=== PATIENT | male | born 1930 | race Caucasian/White ===

== ENCOUNTER 2016-09-05 11:27 | Inpatient (IN) | payer MEDICARE, BC, OTHER ==
--- NOTE | ~2016-09-05 | CN ---
Consultation Report [facility] [address] [place]. [address] NAME: GITA MELLO : 29 STATUS : ADM IN [facility]#: [id number] AGE: 86 ADM/REG DATE : 09/05/16 MR#: [id number] REPORT SERV DATE: 09/07/16 DICTATED BY: JERMAIN CONWAY DATE: 09/07/16 REPORT STATUS : Draft TRANSCRIBED BY: MODJerome DATE: 09/07/16 DATE OF CONSULTATION: 09/07/2016 REASON FOR CONSULTATION: Perioperative anticoagulation management. PRIMARY REFRIGERATION ENGINEER: Dr. Gibbons, [facility]. HISTORY OF PRESENT ILLNESS: Mr. Mello is an 86-year-old gentleman who presents with BPH/urinary clot retention, who is now status post evacuation, awaiting a suprapubic tube placement on Friday. I have been called, given questions of Coumadin management in this setting. He has no cardiovascular complaints at this time. PAST MEDICAL HISTORY: (provided by verbal discussion with [facility] geoscience professor on- call). 1. CAD status post five-vessel CABG, 2004. 2. Status post mitral valve repair, 2004. 3. Status post Bi-V ICD, 2012. 4. Severe ischemic cardiomyopathy (LVEF 20%). 5. Atrial fibrillation, on Coumadin. ALLERGIES: NONE. SOCIAL HISTORY: Lives with family. Denies drinking alcohol, smoking, doing drugs. FAMILY HISTORY: Noncontributory. REVIEW OF SYSTEMS: As above, all other systems otherwise negative. PHYSICAL EXAMINATION: VITAL SIGNS: Blood pressure 108/53, pulse 67, temperature 98.5. GENERAL: Well developed, well nourished, no acute distress. NEURO: Awake, alert and oriented x3; no focal deficits, appropriate mood. HEENT: Moist mucous membranes, anicteric sclerae, no nasal discharge. NECK: No JVD, no carotid bruit. LUNGS: Clear to auscultation bilaterally, no wheezes, rales or rhonchi. CV: Regular rhythm, normal S1/S2, no murmurs, rubs or gallops. ABDOMEN: Soft, non-tender, non-distended, no rebound or guarding. EXTREMITIES: No pitting edema, normal distal pulses. SKIN: Warm, dry and intact; no rash. PERTINENT TEST FINDINGS: Potassium 3.8. Creatinine 1.29. White blood cell count 7.7 and hemoglobin 11.8. EKG is not available on the chart (may not have been checked). Consultation Report [place] [id number] [place]. [address] NAME: GITA MELLO : 29 STATUS : ADM IN PAT#: [id number] AGE: 86 ADM/REG DATE : 09/05/16 MR#: [id number] REPORT SERV DATE: 09/07/16 DICTATED BY: JERMAIN CONWAY DATE: 09/07/16 REPORT STATUS : Draft TRANSCRIBED BY: NAZIA DATE: 09/07/16 IMPRESSION AND PLAN: Mr. Mello is an 86-year-old man with above-mentioned cardiovascular history, awaiting suprapubic tube placement on Friday. It will be fine to hold his Coumadin, as you are already doing, for this procedure. Coumadin should be resumed postoperatively when okay with Urology. The indication for his Coumadin is atrial fibrillation and the day today risk of stroke is minimal in this setting. Otherwise, his cardiovascular issues are entirely stable from a CAD, and heart failure standpoint. He is warm and compensated without any angina or anginal equivalent. His vital signs are all optimized. Please call me with any further questions. ERIKA/NAZIA Jermain Conway MD / [id number] CC: Carol Harden III, M.D.
--- NOTE | ~2016-09-05 | CN ---
Consultation Report [facility] [address] [place]. [address] NAME: GITA PEDRO : 29 STATUS : DIS IN PAT#: [id number] AGE: 86 ADM/REG DATE : 09/05/16 MR#: [id number] REPORT SERV DATE: 09/13/16 DICTATED BY: MARIELENA BRIGHT DATE: 09/12/16 REPORT STATUS : Draft TRANSCRIBED BY: MODJerome DATE: 09/12/16 MEDICAL CONSULTATION NOTE DATE OF CONSULTATION: 09/12/2016 REASON FOR CONSULTATION: Clearance for discharge regarding diabetes. HISTORY OF PRESENT ILLNESS: This is an 86-year-old white male, who has adult-onset diabetes mellitus. Dr. Flaco Zafar has been following his diabetes for several years. He is a previous patient of Dr. Criselda Delgadillo. He is on multiple antidiabetic agents at home and has been only on sliding scale here. His blood sugars generally run from the 170 to 180 range in the morning up to a high of 250 to 313 at bedtime. He has undergone a suprapubic catheter placement and Rain catheter placement for urinary retention and has been following with Dr. Ding since admission. He was seen by the [facility], who allowed the patient to come off the Coumadin he had been on for atrial fibrillation previously. 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 Gibbons. MEDICATIONS: His home medications were reviewed. His antidiabetic medications included Levemir which he had been taking 25 units twice a day and Glimepiride 4 mg a day. He has been off his Janumet for about a year he says, and he takes sliding scale NovoLog. SOCIAL HISTORY: He is . Lives at home with his . He is retired from the [employer] after 21 years and had one tour of duty in [place]. He retired in 1971. 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 He lives in [place] [facility] [place], and has attended [employer] [facility] in the past. No cigarettes. No alcohol. He lives off [facility] and now near [facility]. FAMILY HISTORY: High blood pressure, diabetes, and heart disease all run in the family. REVIEW OF SYSTEMS: He has had no chest pain or shortness of breath. No fever, chills, night sweats, melena, or hematemesis. The remainder of the review of systems is negative. PHYSICAL EXAMINATION: GENERAL: This is a well-developed white male in no acute distress. HEENT: EOMI. Sclerae clear. Conjunctivae pink. He has a slight ptosis on the left side and a slight dysconjugate gaze. Consultation Report [place] [id number] [place]. [id number] NAME: GITA PEDRO : 29 STATUS : DIS IN PAT#: [id number] AGE: 86 ADM/REG DATE : 09/05/16 MR#: [id number] REPORT SERV DATE: 09/13/16 DICTATED BY: MARIELENA BRIGHT DATE: 09/12/16 REPORT STATUS : Draft TRANSCRIBED BY: NAZIA DATE: 09/12/16 NECK: No bruit and without any JVD. CHEST: Clear to A and P. HEART: Regular S1 and S2 without murmur, gallop, or click. ABDOMEN: Soft and nontender. Bowel sounds positive. EXTREMITIES: No edema. He has SCD hose on his legs. : He has a low suprapubic catheter and a Rain catheter in place. He has some slight blood tinging to the urine. LYMPHATICS: There is no adenopathy palpable. NEUROLOGIC: His developer relations manager is equal and symmetric bilaterally. Coordination intact. There are no tremors. He is symmetric and equal neurologically bilaterally. LABORATORY DATA: The blood sugars were reviewed over the last three days. His creatinine was 1.12, BUN of 28, and sodium of 140 within 3 days of admission after the Rain catheter was placed with the creatinine dropping from 1.48 down to 1.12. His hemoglobin is 10.7, hematocrit of 31.2, white count of 6.4, and platelets of 145,000. ASSESSMENT: 1. Diabetes type 2, uncontrolled. Dr. Zafar has been allowing permissive hyperglycemia with the patient on Levemir and sliding scale NovoLog recently. His blood sugars have been running at around 250 at home. He is equal to about that range of control here in the hospital, and I believe that discharge home would be adequate. He has been off the Janumet for about one year. With his prolonged fasting state at the hospital, perhaps restarting 20 units of Levemir twice a day at home would be a reasonable start since he has his NovoLog to use in a sliding scale fashion and knows how to use this to help keep the blood sugar below 250. He should follow back up with Dr. Flcao Zafar in the next 7 to 10 days with checks of his One Touches to allow for further adjustment or addition of medication if necessary. 2. Coagulopathy. [facility] has recommended starting back on the Coumadin just after surgery. Dr. Ding desired to see the patient prior to restarting the Coumadin, and he will follow up with Dr. Ding in 1 week. 3. ASCVD with valve repair, followed by Dr. Gibbons. He will continue his followup with him and discussed the indications for the Coumadin therapy further. 4. History of benign prostatic hypertrophy, Rain and suprapubic catheter are in place at this time. I believe the patient should be able to be discharged home. These instructions are given to him to try to effect a stable postoperative performance and avoidance for any need for rehospitalization. Dr. Ding has already recommended to take the following medications as well at home: Atorvastatin, carvedilol, and furosemide. He may be holding his Levemir and using just a sliding scale. However, I believe that he should adequately restart that Levemir at 20 twice a day. Continue the lisinopril at 2.5 daily, hold the Janumet, continue the Carafate and timolol, hold on the Coumadin until he sees Dr. Ding. Consultation Report [place] [id number] [facility] [place]. [address] NAME: GITA PEDRO : 29 STATUS : DIS IN PAT#: [id number] AGE: 86 ADM/REG DATE : 09/05/16 MR#: [id number] REPORT SERV DATE: 09/13/16 DICTATED BY: MARIELENA BRIGHT DATE: 09/12/16 REPORT STATUS : Draft TRANSCRIBED BY: NAZIA DATE: 09/12/16 DB/NAZIA Marielena Bright M.D. / [id number] CC: Carol Harden III, M.D. Walter Lee Few, M.D.
--- NOTE | ~2016-09-05 | DS ---
Discharge Summary [facility] [address] [place]. [address] NAME: GITA PEDRO : 29 STATUS : DIS IN PAT#: [id number] AGE: 86 ADM/REG DATE : 09/05/16 MR#: [id number] REPORT SERV DATE: 09/20/16 DICTATED BY: DONALD DING III DATE: 09/19/16 REPORT STATUS : Draft TRANSCRIBED BY: NAZIA DATE: 09/19/16 Data Collection from hospitalization DISCHARGE DIAGNOSES: 1. Benign prostatic hypertrophy, retention, and urinary clot retention. 2. Diabetes. 3. Hypertension. 4. Blindness. 5. History of atrial fibrillation. 6. History of severe ischemic cardiomyopathy, left ventricular ejection fraction 20%. CONSULTATIONS: Dr. Jermain Harding and Dr. Ben Carrillo. PROCEDURES: 1. Cystoscopy and clot evacuation on 09/05/2016. 2. Suprapubic tube catheter placement on 09/09/2012. PATHOLOGY: ( ) DISCHARGE MEDICATIONS: Aspirin 81 mg every morning, Lipitor 80 mg at bedtime, Lumigan one drop at bedtime, Coreg 10 mg every morning, Benadryl 25 mg two capsules at bedtime, Nexium 40 mg twice a day, NovoLog as instructed, Levemir 25 units subcutaneously twice a day, levothyroxine 50 mcg daily, Centrum one tablet daily, Klor-Con 20 mEq as instructed, Demadex 40 mg twice a day, Coumadin 6 as instructed. CONDITION AT DISCHARGE: Stable. DISPOSITION: The patient was discharged home to be followed by home health care on a low- cholesterol, 1800-calorie diabetic diet with no chocolate and no concentrated carbohydrates with activities as instructed. He would follow up with me on 09/17/2016, and would follow up with Dr. Flaco Zafar on 09/19/2016. HOSPITAL COURSE: This is an 86-year-old man who is in chronic retention. He had developed hematuria and clot retention. He had had several voiding trials and was unable to void. A CT scan in December of last year showed bilateral hydronephrosis, which resolved with Rain catheter placement. He has a large prostate and has a number of cardiovascular issues and did not get a cardiac clearance for surgery. Home health called on the day of this admission saying that his catheter had not drained, and there was blood in the catheter bag. This apparently had been going on for most of the night. He was on warfarin, and his INR level was 2.7. He came to the office and I attempted to irrigate his bladder with a sizeable catheter and simply could not evacuate any clot or irrigate it. It was felt that he would need to undergo surgical intervention. He was admitted to the hospital at this time for further evaluation and treatment. Upon admission, he was taken to the operating room where he underwent the above-mentioned procedure. He tolerated this well, and there were no complications. On postop day 1, his urine was clear. Continuous bladder irrigation was going to be weaned on the . He was seen in consultation by Dr. Jermain Harding regarding perioperative anticoagulation management. Discharge Summary [address] [address] NAME: GITA PEDRO : 29 STATUS : DIS IN PAT#: [id number] AGE: 86 ADM/REG DATE : 09/05/16 MR#: [id number] REPORT SERV DATE: 09/20/16 DICTATED BY: DONALD DING III DATE: 09/19/16 REPORT STATUS : Draft TRANSCRIBED BY: NAZIA DATE: 09/19/16 The patient has no cardiovascular complaints at this time. Creatinine level was 1.29, potassium was 3.8. Plans were being made for a suprapubic tube to be placed. It was felt to be fine to hold his Coumadin for this procedure. Coumadin would be resumed postoperatively when okay with Urology. The indication for his Coumadin is atrial fibrillation On 09/08/2016, INR level was 1.3. His lungs were clear. His urine remained clear. On 09/09/2016, he underwent suprapubic tube placement. He tolerated this well. There were no complications. The Rain catheter had been removed. H and H had decreased. On 09/10/2016, his urine was clear. His abdomen was soft with positive bowel sounds. Hemoglobin was stable. He was seen by Dr. Ben Carrillo regarding clearance for discharge regarding diabetes. The patient is on a number up antidiabetic agents at home. Here, he had only been on sliding scale insulin. Creatinine had decreased to 1.12. His type [address] Zafar had been allowing permissive hyperglycemia with the patient on Levemir and sliding scale NovoLog recently. His blood sugars had been running around 250 at home. He was equal to about that range of control here in the hospital. It was felt that discharge home would be adequate. He had been off Janumet for about one year. It was felt that with his prolonged fasting state at the hospital that perhaps restarting 20 units of Levemir twice a day at home would be reasonable since he has his NovoLog to use a sliding scale fashion. He knows how to help keep his blood sugar below 250 by using that. He would follow up with Dr. Flaco Zafar within 7 to 10 days with checks of his OneTouch's to allow for further adjustment or addition of medication as necessary. He does have a history of benign prostatic hypertrophy. Rain and suprapubic catheter were in place at this time. He would hold off on Coumadin until he saw Dr. Ding in followup. Discharge planning was performed. He continued to do well. On 09/12/2016, his vital signs were stable. His urine was faint pink. He had no clots. His abdomen was nontender. It was soft and non distended. Discharge instructions were given. Due to his improved and stable condition, he was discharged home with the above-stated instructions. Information collected by: Enma Maxwell I submit the above information as my discharge summary. TG/MODL Donald Ding III, M.D. / [id number] CC: Carol Harden III, M.D. Vimal Ramjee, MD
--- NOTE | ~2016-09-05 | OP ---
Record Of Operation [facility] [address] [place]. [address] NAME: GITA PEDRO : 29 STATUS : ADM IN PAT#: [id number] AGE: 86 ADM/REG DATE : 09/05/16 MR#: [id number] REPORT SERV DATE: 09/06/16 DICTATED BY: DONALD OTTO III DATE: 09/05/16 REPORT STATUS : Draft TRANSCRIBED BY: MODL DATE: 09/05/16 DATE OF PROCEDURE: 09/05/2016 PROCEDURE: Cystoscopy, clot evacuation. PREOPERATIVE DIAGNOSIS: Benign prostatic hypertrophy retention and urinary clot retention. POSTOPERATIVE DIAGNOSIS: Benign prostatic hypertrophy retention and urinary clot retention. ANESTHESIA: General. SURGEON: Donald Otto M.D. DESCRIPTION OF PROCEDURE: Following induction of adequate anesthesia, the patient was placed in dorsal lithotomy position, prepped and draped in a sterile fashion. Urethra was examined and noted to be normal. The prostate was entered. It was quite long, some 6 to 7 cm in length. There was a moderate median lobe which was not pedunculated. The urine in the bladder was grossly bloody. With the Ellik, I evacuated all clots until it came out light pink. Cystoscopy at that point showed a very distensible bladder with cellules and some diverticula. No tumors were noted. There was bleeding at the bladder neck basically from the prostate and median lobe. The bladder was inspected with both 70 and 30-degree lenses. No masses were noted. A 24 three-way was inserted, held on gentle traction. It irrigated to a light pink. The patient tolerated the procedure well. The efflux rapid drip was light pink. The EBL was difficult to estimate. The catheter was secured to the patient's right thigh and the procedure terminated. OB/MODL Donald Otto III, M.D. / [id number] CC: Donald Otto III, M.D.
--- NOTE | ~2016-09-05 | HP ---
History And Physical [place] [id number] [facility] [place]. [address] NAME: GITA PEDRO : 29 STATUS : ADM IN [facility]#: [id number] AGE: 86 ADM/REG DATE : 09/05/16 MR#: [id number] REPORT SERV DATE: 09/05/16 DICTATED BY: DONALD OTTO III DATE: 09/05/16 REPORT STATUS : Draft TRANSCRIBED BY: MODL DATE: 09/05/16 DATE OF ADMISSION: 09/05/2016 REASON FOR ADMISSION: Hematuria and clot retention. The patient is an 86-year-old white male who is in chronic retention and this developed at [facility]. He has had several voiding trials, was unable to void. A CT scan in December of last year showed bilateral hydronephrosis which resolved with Rain placement. He has a large prostate and has a number of cardiovascular issues and did not get a cardiac clearance for surgery. The home health called today saying his catheter had not drained and there was blood in the catheter in the bag. This apparently had been going on most of the night. He is on warfarin and his INR was 2.7. He came to the office and I attempted to irrigate his bladder with a sizeable catheter and simply could not evacuate any clots or irrigate it. He was admitted for a cysto clot evacuation. PAST MEDICAL HISTORY: Includes hypertension, diabetes, insulin-dependent, blindness, shortness of breath. He has a pacemaker and a defibrillator and had a valve repair in 2004. His surgery includes hydrocelectomy, appendectomy, colonoscopy, and right knee surgeries. FAMILY HISTORY: Not significant. SOCIAL HISTORY: He is . He has 2 children. He does not smoke or drink. REVIEW OF SYSTEMS: A 10-point review of systems was done with the patient and there was no chest pain, shortness of breath, weight loss, GI complaints, or neurologic complaints, etc. PHYSICAL EXAMINATION: VITAL SIGNS: On exam in the office, his blood pressure is 119/55, pulse is 70, and respirations were 13. NECK: Supple. LUNGS: Clear. HEART: Regular rate and rhythm without murmur or gallop. ABDOMEN: Soft. : Suprapubic area was somewhat firm but the bladder was not definitely palpated. Liver and spleen were not enlarged. Femoral pulses were intact. Rain catheter was in place. The prostate was 3+ smooth without nodularity or induration. IMPRESSION: Impression is that of a clot retention. We will do a cystoscopy. We will give him several units of fresh frozen plasma hopefully to bring down to around 1.5 to 2 on his INR so that we will not create more bleeding during the procedure. He would do a cystoscopy clot evacuation. I have explained to him the risk of infection and worsening of the bleeding, necessitating another clot retention requiring evacuation. He understands and is agreeable to the procedure. History And Physical [address] [address] NAME: GITA PEDRO : 29 STATUS : ADM IN [facility]#: [id number] AGE: 86 ADM/REG DATE : 09/05/16 MR#: [id number] REPORT SERV DATE: 09/05/16 DICTATED BY: DONALD OTTO III DATE: 09/05/16 REPORT STATUS : Draft TRANSCRIBED BY: NAZIA DATE: 09/05/16 OB/MODL Donald Otto III, M.D. / [id number] CC: Donald Otto III, M.D.
[~2016-09-05 11:27] MED LIST: AMARYL4 PO; ASAB PO; C25 PO; C5 PO; CARASPUDL PO; COREGCR10 PO; COUMADIN7.5 MG PO; JANUMET1 TAB PO; L20 PO; LEVEMIR SC; LIPITOR80 MG PO; MOBIC15 MG PO; NOVOLOG SC; PRILO PO; PRIN2.5 PO; TESS PO; TIMOLOL MAL0.5 % OP; TIMOPTIC0.25 % OP; XALAT OPH
[2016-09-05] MEDS ORDERED: COUMADIN6 MG PO (12:23)
[2016-09-05] MEDS ORDERED: NEXIUM40 PO (12:24)
[2016-09-05] MEDS ORDERED: LUMIGAN2.5 ML OPH (12:24)
[2016-09-05] MEDS ORDERED: BEN25 PO (12:25)
[2016-09-05] MEDS ORDERED: CENTRUM PO (12:25)
[2016-09-05] MEDS ORDERED: LEVOTHYROXIN50 MCG PO (12:25)
[2016-09-05] MEDS ORDERED: DEMA20 PO (12:26)
[2016-09-05] MEDS ORDERED: KLOR-CON M2020 MEQ PO (12:26)
[2016-09-05 13:07] LABS: BASOPHILS 0.1 %; BASOPHILS ABSOLUTE 0.01 10/3/uL (0.0-0.16); EOSINOPHILS 1.3 %; EOSINOPHILS ABSOLUTE 0.15 10/3/uL (0.0-0.53); HEMATOCRIT 38.4 % (40.0-51.0); HEMOGLOBIN 13.1 g/dL (13.6-17.8); IMMATURE GRANULOCYTES 0.3 %; IMMATURE GRANULOCYTES ABSOLUTE 0.03 10/3/uL (0.0-0.11); LYMPHOCYTES 12.9 %; LYMPHOCYTES ABSOLUTE 1.49 10/3/uL (0.67-4.30); MANUAL DIFF NO %; MEAN CORPUS HGB CONC 34.1 g/dL (32.0-36.0); MEAN CORPUSCULAR VOLUME 93.9 fL (80-100); MEAN PLATELET VOLUME 12.5 fL (9.2-13.0); MONOCYTES 7.2 %; MONOCYTES ABSOLUTE 0.83 10/3/uL (0.21-1.20); NEUTROPHILS 78.2 %; NEUTROPHILS ABSOLUTE 9.05 10/3/uL (2.02-8.40); PLATELET COUNT 154 10/3/uL (150-400); RBC DISTRIBUTION WIDTH 15.7 % (12.0-16.0); RED CELL COUNT 4.09 10/6/uL (4.7-6.1); WHITE BLOOD CELLS 11.6 10/3/uL (4.5-10.5)
[2016-09-05 13:15] LABS: INTERNATIONAL NORMAL RATI 2.6 UNITS (-); PARTIAL THROMBO TIME 37.1 SEC (22.5-37.2)
[2016-09-05 13:16] LABS: PROTIME (NOT ORD) 27.2 SEC (12.0-14.5)
[2016-09-05 13:19] LABS: BUN (BLOOD UREA NITROGEN) 31 MG/DL (6-23); CALCIUM, SERUM 8.5 MG/DL (8.5-10.4); CHLORIDE, SERUM 101 MMOL/L (96-112); CO2 (CARBON DIOXIDE) 33 MMOL/L (24-34); CREATININE 1.48 MG/DL (0.70-1.30); GFR AFRICAN AMERICAN 49 ML/MIN (>=60); GFR NON AFRICAN AMERICAN 42 ML/MIN (>=60); GLUCOSE, SERUM 78 MG/DL (60-99); POTASSIUM, SERUM 3.3 MMOL/L (3.5-5.3); SODIUM, SERUM 141 MMOL/L (135-148)
[2016-09-05 14:25] LABS: PFA (COL/ADP) 84 SEC (51-105); PFA (COL/EPI) > 300 SEC (72-180)
[2016-09-06 07:58] LABS: BASOPHILS 0.1 %; BASOPHILS ABSOLUTE 0.01 10/3/uL (0.0-0.16); EOSINOPHILS 0.3 %; EOSINOPHILS ABSOLUTE 0.02 10/3/uL (0.0-0.53); HEMOGLOBIN 11.8 g/dL (13.6-17.8); IMMATURE GRANULOCYTES 0.1 %; IMMATURE GRANULOCYTES ABSOLUTE 0.01 10/3/uL (0.0-0.11); LYMPHOCYTES 17.1 %; LYMPHOCYTES ABSOLUTE 1.32 10/3/uL (0.67-4.30); MEAN CORPUS HGB CONC 33.7 g/dL (32.0-36.0); MEAN CORPUSCULAR HEMOGLOB 31.6 pg (26.0-34.0); MEAN CORPUSCULAR VOLUME 93.8 fL (80-100); MEAN PLATELET VOLUME 12.9 fL (9.2-13.0); MONOCYTES 9.2 %; MONOCYTES ABSOLUTE 0.71 10/3/uL (0.21-1.20); NEUTROPHILS 73.2 %; NEUTROPHILS ABSOLUTE 5.65 10/3/uL (2.02-8.40); PLATELET COUNT 151 10/3/uL (150-400); RBC DISTRIBUTION WIDTH 15.9 % (12.0-16.0); RED CELL COUNT 3.73 10/6/uL (4.7-6.1); WHITE BLOOD CELLS 7.7 10/3/uL (4.5-10.5)
[2016-09-06 08:00] LABS: MANUAL DIFF NO %
[2016-09-06 08:02] LABS: INTERNATIONAL NORMAL RATI 1.8 UNITS (-)
[2016-09-06 08:05] LABS: PROTIME (NOT ORD) 20.5 SEC (12.0-14.5)
[2016-09-06 08:07] LABS: BUN (BLOOD UREA NITROGEN) 28 MG/DL (6-23); CALCIUM, SERUM 8.3 MG/DL (8.5-10.4); CHLORIDE, SERUM 97 MMOL/L (96-112); CO2 (CARBON DIOXIDE) 29 MMOL/L (24-34); CREATININE 1.29 MG/DL (0.70-1.30); GFR AFRICAN AMERICAN 57 ML/MIN (>=60); GFR NON AFRICAN AMERICAN 50 ML/MIN (>=60); POTASSIUM, SERUM 3.8 MMOL/L (3.5-5.3); SODIUM, SERUM 139 MMOL/L (135-148)
[2016-09-06 08:08] LABS: GLUCOSE, SERUM 233 MG/DL (60-99)
[2016-09-08 04:45] LABS: BASOPHILS 0.2 %; BASOPHILS ABSOLUTE 0.01 10/3/uL (0.0-0.16); EOSINOPHILS 1.6 %; HEMATOCRIT 32.2 % (40.0-51.0); HEMOGLOBIN 10.9 g/dL (13.6-17.8); IMMATURE GRANULOCYTES 0.2 %; IMMATURE GRANULOCYTES ABSOLUTE 0.01 10/3/uL (0.0-0.11); LYMPHOCYTES 22.8 %; LYMPHOCYTES ABSOLUTE 1.45 10/3/uL (0.67-4.30); MEAN CORPUS HGB CONC 33.9 g/dL (32.0-36.0); MEAN CORPUSCULAR HEMOGLOB 32.1 pg (26.0-34.0); MEAN CORPUSCULAR VOLUME 94.7 fL (80-100); MONOCYTES 12.2 %; MONOCYTES ABSOLUTE 0.78 10/3/uL (0.21-1.20); NEUTROPHILS ABSOLUTE 4.02 10/3/uL (2.02-8.40); PLATELET COUNT 145 10/3/uL (150-400); RBC DISTRIBUTION WIDTH 16.1 % (12.0-16.0); WHITE BLOOD CELLS 6.4 10/3/uL (4.5-10.5)
[2016-09-08 04:53] LABS: INTERNATIONAL NORMAL RATI 1.3 UNITS (-); MANUAL DIFF NO %
[2016-09-08 05:00] LABS: PROTIME (NOT ORD) 16.4 SEC (12.0-14.5)
[2016-09-08 05:02] LABS: BUN (BLOOD UREA NITROGEN) 28 MG/DL (6-23); CALCIUM, SERUM 8.4 MG/DL (8.5-10.4); CHLORIDE, SERUM 103 MMOL/L (96-112); CO2 (CARBON DIOXIDE) 26 MMOL/L (24-34); CREATININE 1.12 MG/DL (0.70-1.30); GFR AFRICAN AMERICAN 68 ML/MIN (>=60); GFR NON AFRICAN AMERICAN 59 ML/MIN (>=60); GLUCOSE, SERUM 190 MG/DL (60-99); PHOSPHORUS, SERUM 2.6 MG/DL (2.5-4.5); POTASSIUM, SERUM 3.7 MMOL/L (3.5-5.3); SODIUM, SERUM 140 MMOL/L (135-148)
[2016-09-09 05:05] LABS: HEMATOCRIT 33.9 % (40.0-51.0); HEMOGLOBIN 11.4 g/dL (13.6-17.8)
[2016-09-09 05:12] LABS: INTERNATIONAL NORMAL RATI 1.2 UNITS (-); PROTIME (NOT ORD) 15.1 SEC (12.0-14.5)
[2016-09-09 20:30] LABS: HEMATOCRIT 34.5 % (40.0-51.0); HEMOGLOBIN 11.3 g/dL (13.6-17.8)
[2016-09-10 06:25] LABS: HEMATOCRIT 31.7 % (40.0-51.0); HEMOGLOBIN 10.6 g/dL (13.6-17.8)
[2016-09-11 06:00] LABS: HEMATOCRIT 31.2 % (40.0-51.0); HEMOGLOBIN 10.7 g/dL (13.6-17.8)
== END 2016-09-12 14:45 | disposition home or self-care (01) | DRG 726 ==
LOC: CDU2 11:27 → SDC/OF 14:40 → 4SO 18:04
PROVIDERS: Urology
DX: N40.1 Benign prostatic hyperplasia with lower urinary tract symptoms (principal); I11.0 Hypertensive heart disease with heart failure; E11.65 Type 2 diabetes mellitus with hyperglycemia; N13.8 Other obstructive and reflux uropathy; I48.0 Paroxysmal atrial fibrillation; R31.0 Gross hematuria; R33.8 Other retention of urine; N32.3 Diverticulum of bladder; I25.10 Atherosclerotic heart disease of native coronary artery without angina pectoris; Z95.1 Presence of aortocoronary bypass graft; Z95.2 Presence of prosthetic heart valve; Z79.01 Long term (current) use of anticoagulants; Z95.810 Presence of automatic (implantable) cardiac defibrillator; I25.5 Ischemic cardiomyopathy; N28.9 Disorder of kidney and ureter, unspecified; Z79.4 Long term (current) use of insulin; Z79.84 Long term (current) use of oral hypoglycemic drugs
CPT/HCPCS: 36415; 51102; 71020; 77002; 80048; 80069; 82962; 85014; 85018; 85025; 85576; 85610; 85730; 86900; 86901; 93005; A9270-GY; C1713; C1769; J2405; J3010; P9059; Q9967